=== PATIENT | male | born 1960 | race American Indian/Alaskan Native ===

== ENCOUNTER 2017-03-22 10:30 | Emergency (ER) | payer SELFPAY | END 2017-03-22 10:31 | disposition left against medical advice (07) | LOC: ED 10:30 | DX: R42 Dizziness and giddiness (principal); R53.1 Weakness; Z53.21 Procedure and treatment not carried out due to patient leaving prior to being seen by health care provider ==

== ENCOUNTER 2019-09-30 08:52 | Emergency (ER) | payer BC ==
[2019-09-30] MEDS ORDERED: ASPIRIN 325 MG TAB PO ONE (09:14)
[2019-09-30 09:38] LABS: Basophils % (Auto) 0.4 % (0.0-1.8); Eosinophils # (Auto) 0.5 K/mm3 (0.0-0.4); Eosinophils % (Auto) 12.4 % (0.0-4.3); Hematocrit 43.8 % (35.5-45.6); Hemoglobin 14.7 gm/dl (11.8-15.2); Lymphocytes # (Auto) 1.6 K/mm3 (1.2-5.4); Lymphocytes % (Auto) 35.4 % (13.4-35.0); Mean Corpuscular HGB Conc 34 % (32-34); Mean Corpuscular Volume 90 fl (84-94); Monocytes # (Auto) 0.4 K/mm3 (0.0-0.8); Monocytes % (Auto) 8.7 % (0.0-7.3); Platelet Count 272 K/mm3 (140-440); Red Blood Count 4.84 M/mm3 (3.65-5.03); Red Cell Distribution Width 13.8 % (13.2-15.2)
[2019-09-30 10:02] LABS: BUN/Creatinine Ratio 23; Blood Urea Nitrogen 23 mg/dL (9-20); Calcium 9.6 mg/dL (8.4-10.2); Hemolysis Index 8
--- NOTE | 2019-09-30 10:03 | XRay Report ---
CHEST 1 VIEW INDICATION / CLINICAL INFORMATION: Chest Pain. COMPARISON: None available. FINDINGS: SUPPORT DEVICES: None. HEART / MEDIASTINUM: No significant abnormality. LUNGS / PLEURA: No significant pulmonary or pleural abnormality. No pneumothorax. ADDITIONAL FINDINGS: Hypertrophic degenerative changes are identified in the lower thoracic spine. IMPRESSION: 1. No acute findings. Signer Name: Juan Manuel Robert MD Signed: 09/30/2019 9:53 AM Workstation Name: [id number]
[2019-09-30] MEDS ORDERED: ALBUTEROL 2.5 MG/3 ML NEBU IH ONE (11:04)
[2019-09-30] MEDS ORDERED: methylPREDNISolone Sod Succinate 125 MG/2 ML INJ IV ONE (11:05)
[2019-09-30] MEDS ORDERED: SODIUM CHLORIDE 0.9% 1000 ML 1,000 ML IV ONE (11:05)
--- NOTE | 2019-09-30 11:05 | Emergency Department Report ---
ED Neck Pain HPI Chief Complaint: Dyspnea/Respdistress Stated Complaint: CIERRA/LUNG PAIN Time Seen by Provider: 09/30/19 11:03 ED Review of Systems ROS: Stated complaint: CIERRA/LUNG PAIN Other details as noted in HPI Neck Pain Exam - Exam General: Vital signs noted. No distress. Alert and acting appropriately. ED Course Vital Signs 09/30/19 09:14 Temperature 98.1 F Pulse Rate 89 Respiratory 18 Rate Blood Pressure 183/112 O2 Sat by Pulse 96 Oximetry ED Medical Decision Making - Lab Data Result diagrams: 09/30/19 09:21 09/30/19 09:21 Critical care attestation.: If time is entered above; I have spent that time in minutes in the direct care of this critically ill patient, excluding procedure time. ED Disposition Condition: Stable
[2019-09-30] MEDS ORDERED: AZITHROMYCIN 500 MG in SODIUM CHLORIDE 0.9% 250ML 250 ML IV ONE (11:30)
--- NOTE | 2019-09-30 11:31 | Emergency Department Report ---
Minor Respiratory - HPI Chief Complaint: Dyspnea/Respdistress Stated Complaint: CIERRA/LUNG PAIN Time Seen by Provider: 09/30/19 11:03 Pain Location: Chest Severity: mild Minor Respiratory: Yes Able to Tolerate Fluids, Yes Cough, Yes Chest Pain, No Rhinorrhea, No Sore Throat, No Ear Pain, No Sick Contacts, No Hemoptysis, No Shortness of Breath, No Fever Other History: 58 yo aa male comes to er with cough and congestion for weeks. Worse at night. Recently treated for viral pna with levaquin and prednisone. no fever on admit to triage. elevated blood pressure noted. pt non ill non toxic on exam. ED Review of Systems ROS: Stated complaint: CIERRA/LUNG PAIN Other details as noted in HPI Comment: All other systems reviewed and negative ED Past Medical Hx - Past Medical History Previous Medical History?: No - Surgical History Past Surgical History?: No - Family History Family history: no significant - Social History Smoking Status: Never Smoker Substance Use Type: None - Medications Home Medications: Home Medications Medication Instructions Recorded Confirmed Last Taken Type Albuterol INH(or & Nicu Only) 2 puff IH QID PRN #1 inhalation 09/30/19 Unknown Rx [ProAir HFA Inhaler] Benzonatate [Tessalon Perles] 100 mg PO Q12H PRN #20 capsule 09/30/19 Unknown Rx DOXYCYCLINE Hyclate [Vibramycin 100 mg PO Q12HR #20 capsule 09/30/19 Unknown Rx CAP] Fluticasone [Flonase] 1 spray NS QDAY #1 bottle 09/30/19 Unknown Rx Ibuprofen [Motrin] 800 mg PO Q8HR PRN #30 tablet 09/30/19 Unknown Rx predniSONE [Deltasone] 20 mg PO DAILY #5 tablet 09/30/19 Unknown Rx Minor Respiratory Exam - Exam General: Vital signs noted. No distress. Alert and acting appropriately. HEENT: Yes Moist Mucous Membranes, No Pharyngeal Erythema, No Pharyngeal Exudates, No Rhinorrhea, No Conjuctival Injection, No Frontal Tenderness, No Maxillary Tenderness Ear: Neither TM Bulge, Neither TM Erythema, Neither EAC Pain, Neither EAC Discharge Neck: Yes Supple, No Adenopathy Lungs: Yes Good Air Exchange, No Wheezes, No Ronchi, No Stridor, No Cough, No Labored Respirations, No Retractions, No Use of Accessory Muscles, No Other Abnormal Lung Sounds Heart: Yes Regular, No Murmur Abdomen: Yes Normal Bowel Sounds, No Tenderness, No Peritoneal Signs Skin: No Rash, No Edema Neurologic: Alert and oriented, no deficits. Musculoskeletal: Unremarkable. ED Course Vital Signs 09/30/19 09/30/19 09:14 11:24 Temperature 98.1 F Pulse Rate 89 Pulse Rate [ 85 Bilateral] Respiratory 18 Rate Respiratory 18 Rate [Bilateral ] Blood Pressure 183/112 O2 Sat by Pulse 96 Oximetry ED Medical Decision Making - Lab Data Result diagrams: 09/30/19 09:21 09/30/19 09:21 - EKG Data -: EKG Interpreted by Pa EKG shows normal: sinus rhythm Rate: normal - EKG Data When compared to previous EKG there are: no significant change Interpretation: no acute changes - Radiology Data Radiology results: report reviewed, image reviewed - Medical Decision Making xray noted 12 lead normal trop neg labs noted medicated in ER given length of time ill will treat pt with second course antibiotics and have him follow up with pcp Labs 09/30/19 09/30/19 09:21 09:21 WBC 4.4 L RBC 4.84 Hgb 14.7 Hct 43.8 MCV 90 MCH 30 MCHC 34 RDW 13.8 Plt Count 272 Lymph % (Auto) 35.4 H [place] % (Auto) 8.7 H Eos % (Auto) 12.4 H Baso % (Auto) 0.4 Lymph # 1.6 [place] # 0.4 Eos # 0.5 H Baso # 0.0 Seg Neutrophils % 43.1 Seg Neutrophils # 1.9 Sodium 140 Potassium 4.2 Chloride 102.8 Carbon Dioxide 22 Anion Gap 19 BUN 23 H Creatinine 1.0 Estimated GFR > 60 BUN/Creatinine Ratio 23 Glucose 126 H Calcium 9.6 Troponin T < 0.010 Vital Signs 09/30/19 09/30/19 09:14 11:24 Temperature 98.1 F Pulse Rate 89 Pulse Rate [ 85 Bilateral] Respiratory 18 Rate Respiratory 18 Rate [Bilateral ] Blood Pressure 183/112 O2 Sat by Pulse 96 Oximetry non ill non toxic appearing no fever ambulatory taking po family and pt educated to monitor blood pressure and bring it to attn of pcp if remains elevated dchome with dc plan of care - Differential Diagnosis urti/flu/pna Critical care attestation.: If time is entered above; I have spent that time in minutes in the direct care of this critically ill patient, excluding procedure time. ED Disposition Clinical Impression: URTI (acute upper respiratory infection) Disposition: DC-01 TO HOME OR SELFCARE Is pt being admited?: No Does the pt Need Aspirin: No Condition: Stable Instructions: Viral Pneumonia (ED), Upper Respiratory Infection (ED) Additional Instructions: stay well hydrated motrin or tylenol for pain or fever meds as ordered today follow up with pcp referral below monitor your blood pressure for it was elevated today Prescriptions: predniSONE [Deltasone] 20 mg PO DAILY #5 tablet Fluticasone [Flonase] 1 spray NS QDAY #1 bottle Ibuprofen [Motrin] 800 mg PO Q8HR PRN #30 tablet PRN Reason: Pain, Moderate (4-6) Albuterol INH(or & Nicu Only) [ProAir HFA Inhaler] 2 puff IH QID PRN #1 inhalation PRN Reason: Shortness Of Breath Benzonatate [Tessalon Perles] 100 mg PO Q12H PRN #20 capsule PRN Reason: Cough DOXYCYCLINE Hyclate [Vibramycin CAP] 100 mg PO Q12HR #20 capsule Referrals: JENNIFER FULLER MD [Staff Physician] - 3-5 Days Time of Disposition: 12:12
[2019-09-30 14:48] VITALS: BP 174/100
== END 2019-09-30 14:46 | disposition home or self-care (01) ==
LOC: ED 08:52
DX: N39.0 Urinary tract infection, site not specified (principal); R03.0 Elevated blood-pressure reading, without diagnosis of hypertension
CPT/HCPCS: 36415; 71045; 80048; 84484; 85025; 93005; 93010; 94640; 96365; 96375; 99284; J0456; J2930; J7030; J7050; 94644

== ENCOUNTER 2019-11-24 10:42 | Outpatient (CLI) | payer BC ==
[2019-11-24 11:15] LABS: Basophils # (Auto) 0.1 K/mm3 (0.0-0.1); Basophils % (Auto) 2.5 % (0.0-1.8); Eosinophils # (Auto) 0.3 K/mm3 (0.0-0.4); Eosinophils % (Auto) 8.5 % (0.0-4.3); Hemoglobin 15.1 gm/dl (11.8-15.2); Lymphocytes # (Auto) 1.5 K/mm3 (1.2-5.4); Lymphocytes % (Auto) 43.5 % (13.4-35.0); Mean Corpuscular HGB Conc 34 % (32-34); Mean Corpuscular Volume 89 fl (84-94); Monocytes # (Auto) 0.3 K/mm3 (0.0-0.8); Monocytes % (Auto) 8.8 % (0.0-7.3); Platelet Count 268 K/mm3 (140-440); Red Blood Count 5.04 M/mm3 (3.65-5.03)
[2019-11-24 11:44] LABS: Alanine Aminotransferase 28 units/L (7-56); Albumin 4.9 g/dL (3.9-5); BUN/Creatinine Ratio 27; Blood Urea Nitrogen 27 mg/dL (9-20); Calcium 10.1 mg/dL (8.4-10.2); HDL Cholesterol 39 mg/dL (40-59); Hemolysis Index 8; LDL Cholesterol,Direct TNR mg/dL (50-130)
== END 2019-11-24 10:43 | disposition home or self-care (01) ==
LOC: LAB 10:42
PROVIDERS: ATTEND Internal Medicine
DX: Z00.00 Encounter for general adult medical examination without abnormal findings (principal); Z13.1 Encounter for screening for diabetes mellitus; Z13.220 Encounter for screening for lipoid disorders; Z13.29 Encounter for screening for other suspected endocrine disorder; Z13.21 Encounter for screening for nutritional disorder; Z12.5 Encounter for screening for malignant neoplasm of prostate
CPT/HCPCS: 36415; 80053; 80061; 82607; 83036; 84153; 84443; 85025